=== PATIENT | female | born 1935 | race Caucasian/White ===

== ENCOUNTER 2022-03-14 19:45 | Inpatient (IN) | payer MEDICARE ==
[~2022-03-14] VITALS: Wt 44.0 kg
[2022-03-14] MEDS ORDERED: CALCIUM 500+D1 EACH PO (21:46)
[2022-03-14] MEDS ORDERED: CARBIDOPA-LEVO1 EA19 PO (21:47)
[2022-03-14] MEDS ORDERED: LISI5 PO (21:48)
[2022-03-14] MEDS ORDERED: CARV6.25 PO (21:48)
[2022-03-14] MEDS ORDERED: Zocor40 MG PO (21:49)
[2022-03-14] MEDS ORDERED: FISH OIL-VIT D1 EACH PO (21:50)
[2022-03-14] MEDS ORDERED: THERA-D2000 UNIT PO (21:51)
--- NOTE | 2022-03-14 22:31 | NUR ---
PT ARRIVED TO FLOOR A TRANSFER FROM [facility]. MEDICS REPORTED MEDICATING WITH 50 MCG OF FENT BEFORE ARRIVAL. PT A/OX3, DROWSY. ORTHO CALLED REQUESTING NEW IMAGES. HOSPITALIST NOTIFIED OF PTS ARRIVAL, AWAITING ORDERS. PT RESTING WITH FAMILY AT BEDSIDE, CALL LIGHT IN REACH.
[2022-03-14 23:42] LABS: International Normalized Ratio 1.02; Prothrombin Time Results 10.7 Sec (9.7-11.5)
[2022-03-15 00:34] LABS: BASOPHILS ABSOLUTE AUTO 0.04 K/mm3 (0.00-0.23); BASOPHILS PERCENT AUTO 0 % (0-2); EOSINOPHILS ABSOLUTE AUTO 0.06 K/mm3 (0.00-0.68); EOSINOPHILS PERCENT AUTO 0 % (0-6); Hematocrit 38.8 % (33.0-51.0); IMMATURE GRAN ABSOLUTE AUTO 0.05 K/mm3 (0.00-0.10); IMMATURE GRAN PERCENT AUTO 0 % (0-1); LYMPHOCYTES ABSOLUTE AUTO 0.82 K/mm3 (0.84-5.20); LYMPHOCYTES PERCENT AUTO 5 % (21-46); MONOCYTES ABSOLUTE AUTO 0.95 K/mm3 (0.16-1.47); MONOCYTES PERCENT AUTO 6 % (4-13); Mean Corpuscular HGB 30.2 pg (26.0-34.0); Mean Corpuscular HGB Conc 33.5 g/dL (31.5-36.5); Mean Corpuscular Volume 90 fL (80-100); NEUTROPHILS ABSOLUTE AUTO 13.99 K/mm3 (1.96-9.15); NEUTROPHILS PERCENT AUTO 88 % (41-73); Platelet Count 143 K/mm3 (150-400); RDW Coefficient Variation 12.5 % (11.7-14.2); RDW Standard Deviation 41.4 fL (35.1-46.3); Red Blood Cell Count 4.31 M/mm3 (3.80-5.20); White Blood Cell Count 15.91 K/mm3 (4.00-11.30)
[2022-03-15 00:46] LABS: Albumin, Blood 3.1 g/dL (3.4-5.0); Albumin/Globulin Ratio 0.8 (0.8-1.8); Bun/Creatinine Ratio 28.7 (12.0-20.0); Calcium, Blood 8.6 mg/dL (8.5-10.1); Creatinine, Blood 0.49 mg/dL (0.40-1.00); Globulin, Blood 3.9 g/dL (2.2-4.0); Potassium, Blood 3.9 mmol/L (3.5-5.5)
[2022-03-15] MEDS ORDERED: Aspir 8181 MG PO (02:24)
--- NOTE | 2022-03-15 04:22 | NUR ---
PT IS A NEW ADMIT FROM THE ER WITH A R FEMUR FX. VSS. PT HAS BEEN NPO SINCE ARRIVING TO THE FLOOR. PT SLEPT WELL T/O THE NIGHT. MEDICATED FOR NAUSEA, PT DID NOT WANT TO TAKE ANY PAIN MEDICATION DUE TO FEELING NAUSEATED FROM FENTENYL GIVEN ON THE AMBULANCE. DISTAL PULSES AND SENSATION REMAIN INTACT IN THE RLE. C/O MINIMAL PAIN WITH MOVEMENT. VOIDING W/O DIFFICULTY, CONTINENT/INCONTINENT. AWAITING ORTHO CONSULT THIS AM. THE PT IS CURRENTLY SLEEPING, IN NO DISTRESS. CALL LIGHT IN REACH, BED ALARM ON.
--- NOTE | 2022-03-15 11:45 | NUR ---
TO DAY SURGERY VIA HOSPITAL BED
--- NOTE | 2022-03-15 12:12 | NUR ---
History, Chart, Medications and Allergies reviewed before start of procedure. Lungs clear T/O but diminished to Auscultated. Pt encouraged to take deep breathes. Patient confirms NPO status and agrees with scheduled surgery. Pre-Op teaching done. Pt verbalizes understanding.
--- NOTE | 2022-03-15 14:50 | NUR ---
POST OP ARRIVES TO ROOM, FULLY AWAKE & ORIENTED. DENIES PAIN; REPORTS STIFFNESS. NO NAUSEA. VSS. LUNGS CLEAR BUT DIM; 2L NC. PPP. R HIP w/ SMALL AQUACEL. NO DRAINAGE NOTED. NO BRUISING TO AREA. ATTENDS IN PLACE. WATER & JELLO GIVEN.
--- NOTE | 2022-03-15 18:36 | NUR ---
SHIFT SUMMARY ASSUMED CARE OF PATIENT AT 1500. ALERT AND ORIENTED, RESTING IN BED. POD 0 R HIP FX REPAIR WITH PINNING WITH DR REESE. AQUCEL TO R HIP WITH MOD SPOT OF SS DRAINAGE, INTACT. PATIENT RATES PAIN 6/10, MEDICATING PER EMAR WITH TYLENOL AND TORADOL. MORPHINE IV FOR BREAKTHROUGH. TOLERATING BITES OF REG DIET AND ORAL LIQUIDS. INCONTINENT AT BASELINE. ATTENDS DRY AT THIS TIME. AND SON ATTENTIVE IN ROOM.
[2022-03-16 00:51] LABS: Source, Urine Foley catheter
[2022-03-16 00:55] LABS: Bilirubin, Urine Neg (Neg); Blood, Urine 3+ (Neg); Glucose Qualitative, Urine Neg (Neg); Ketones, Urine 1+ (Neg); Leukocyte Esterase, Urine 3+ (Neg); Nitrite, Urine Neg (Neg); Protein, Urine 2+ (Neg); Specific Gravity, Urine 1.015 (1.003-1.022); Urobilinogen, Urine NORM (Normal)
[2022-03-16 01:03] LABS: Appearance, Urine Cloudy (Clear); Color, Urine Yellow (P-Yellow)
[2022-03-16 01:05] LABS: Bacteria Mod /hpf; Squamous Epithelial Cells Rare /hpf (Few); White Blood Cells, Urine TNTC /hpf (0-5)
--- NOTE | 2022-03-16 01:42 | NUR ---
0110 HRS: PT BP INCREASED TO 170/67 WITH A PULSE OF 66. TOOK BP ONCE MORE AND IT HAD INCREASED TO 179/73 WITH A PULSE OF 68. PT DENIED SOB OR CHEST PAIN. DR. MARROQUIN CALLED AND HYDRALAZINE ORDER OBTAINED.
[2022-03-16 04:28] LABS: BASOPHILS ABSOLUTE AUTO 0.02 K/mm3 (0.00-0.23); BASOPHILS PERCENT AUTO 0 % (0-2); EOSINOPHILS PERCENT AUTO 0 % (0-6); Hematocrit 38.3 % (33.0-51.0); Hemoglobin 12.9 g/dL (11.5-16.0); IMMATURE GRAN ABSOLUTE AUTO 0.03 K/mm3 (0.00-0.10); IMMATURE GRAN PERCENT AUTO 0 % (0-1); LYMPHOCYTES ABSOLUTE AUTO 0.86 K/mm3 (0.84-5.20); LYMPHOCYTES PERCENT AUTO 7 % (21-46); MONOCYTES ABSOLUTE AUTO 0.52 K/mm3 (0.16-1.47); MONOCYTES PERCENT AUTO 4 % (4-13); Mean Corpuscular HGB 30.1 pg (26.0-34.0); Mean Corpuscular HGB Conc 33.7 g/dL (31.5-36.5); Mean Corpuscular Volume 90 fL (80-100); Mean Platelet Volume 10.5 fL (9.1-12.4); NEUTROPHILS ABSOLUTE AUTO 11.11 K/mm3 (1.96-9.15); NEUTROPHILS PERCENT AUTO 89 % (41-73); Platelet Count 147 K/mm3 (150-400); RDW Coefficient Variation 12.2 % (11.7-14.2); Red Blood Cell Count 4.28 M/mm3 (3.80-5.20); White Blood Cell Count 12.54 K/mm3 (4.00-11.30)
[2022-03-16 04:49] LABS: Albumin, Blood 2.9 g/dL (3.4-5.0); Anion Gap 6 mmol/L (6-16); Blood Urea Nitrogen 16 mg/dL (8-24); Bun/Creatinine Ratio 28.4 (12.0-20.0); CO2, Blood 29 mmol/L (21-32); Calcium, Blood 8.9 mg/dL (8.5-10.1); Chloride, Blood 102 mmol/L (98-108); Creatinine, Blood 0.56 mg/dL (0.40-1.00); Glomerular Filtration Rate 89 (60-); Glucose, Blood 170 mg/dL (70-99); Phosphorus, Blood 2.4 mg/dL (2.5-4.9); Potassium, Blood 4.2 mmol/L (3.5-5.5); Sodium, Blood 137 mmol/L (136-145)
--- NOTE | 2022-03-16 05:01 | NUR ---
SHIFT SUMMARY: PT IS A&O AND IS VERY PLEASANT. C/O MINIMAL PAIN T/O THE NIGHT THAT WAS WELL MANAGED WITH ORDERS PER EMAR. PT USED BSC WITH GAIT BELT AND FWW AND TOLERATED FAIRLY. ATTENDS ARE IN PLACE. AQUACEL X1 REMAINS IN PLACE ON HER RIGHT HIP. TOLERATING PO FLUIDS AND EATING SMALL AMOUNTS OF FOOD. PT HAD HYPERTENSIVE EPISODE DURING THE SHIFT, DR. MARROQUIN WAS NOTIFIED AND HYDRALAZINE WAS ORDERED. DENIED SOB OR CHEST PAIN. PT RESPONDED WELL. ANSWERS AND USES CALL LIGHT APPRIPRIATELY. CALL LIGHT REMAINS IN REACH.
--- NOTE | 2022-03-16 14:21 | NUR ---
SHIFT SUMMARY: POD 1 RIGHT HIP PINNING PATIENT IS A&OX4. VS ARE WNL AND IS ON 2L NC FOR COMFORT. PAIN IS MANAGED WITH PO TRAMADOL AND TYLENOL. SHE IS TOE TOUCH WT BEARING ON THE RIGHT HIP. PATIENT IS A SBA WITH FWW AND GAIT BELT. SHE DENIES NUMBNESS AND TINGLING IN ALL EXTREMITIES. RIGHT HIP HAS ONE AQUACEL THAT IS INTACT. PATIENT IS INCONTINENT AT TIMES BUT WILL MAKE STAFF AWARE AND WILL GET ON THE BSC TO GET HER DEPENDS CHANGED. SHE IS TOLERATING PO INTAKE AND IS PASSING GAS. SHE IS RECIEVING MIRALAX TO PROMOTE A BM. CALLS APPROPRIATELY. CALL LIGHT WITHIN REACH. IS AT BEDSIDE. THE PLAN IS FOR HER TO BE TRANSFERRED TO A SNF UP IN [place] WHERE THEY ARE FROM. THEN COME BACK IN TWO WEEKS TO SEE DR. REESE FOR THE FIRST FOLLOW UP THEN WILL FOLLOW UP WITH A DOCTOR CLOSER TO HOME.
--- NOTE | 2022-03-16 14:44 | NUR ---
ASSUMED CARE OF PATIENT PATIENT RESTING IN CHAIR, IV WENT BAD FOR PREVIOUS RN. THIS RN DISCUSSED NEW IV WITH PATIENT AND PATIENT REQUESTED TO ASK DOCTOR IF IV WAS NECESSARY. THIS RN WILL CALL DOCTOR. CALL LIGHT IN REACH, NO OTHER NEEDS AT THIS TIME.
--- NOTE | 2022-03-16 15:06 | NUR ---
JEFF BLOOD PRESSURE HIGH AT 186/61 WITH A RECHECK OF 195/72. THIS RN CALLED DR HANEY. GAVE ORDERS TO GIVE PATIENT HER PAIN MEDICATION AND RECHECK BLOOD PRESSURE, DO NOT GIVE HYDRALAZINE AT THIS TIME. DR HANEY ALSO GAVE ORDERS OVER TELEPHONE FOR NO IV ACCESS NEEDED AND STATED SHE WILL SWITCH ABX TO ORAL. ALSO GAVE ORDERS TO CHANGE HYDRALAZINE TO ORAL, 10MG PO Q6 PRN.
--- NOTE | 2022-03-16 17:48 | NUR ---
SHIFT SUMMARY PATIENT IS POD 1 R HIP PINNING. DRESSING CHANGED D/T DRAINAGE PRESENT. NEW AQUACEL IN PLACE, C/D/I. PAINMANAGED PER EMAR. PATIENTS BLOOD PRESSURE HAS BEEN ELEVATED THIS AFTERNOON, SEE PREVIOUS NOTE. PRN HYDRALAZINE GIVEN. CONTINUING TO RECHECK BP'S. PATIENT EATING, DRINKING, & VOIDING WELL. CALLS APPROPRITELY, WILL REPORT TO ONCOMING RN.
--- NOTE | 2022-03-17 04:52 | NUR ---
SHIFT SUMMARY: A&OX3. PT OCCASSIONALLY FORGETFUL, EASILY REMINDED. C/O MINIMAL PAIN T/O THE SHIFT THAT WAS WELL MANAGED PER EMAR ORDERS. USING BSC WITH FWW AND GAIT BELT. TOLERATING WELL. ATTENDS IN PLACE. TOLERATING PO FLUIDS AND FOOD. REPORTS DECREASED APPETITE AT BASELINE. GIVEN APPLESAUCE DURING THE NIGHT TO SNACK ON. REMAINS ON 1L 02 VIA NC.CALL LIGHT REMAINS IN REACH AND PT IS RESTING AT THIS TIME.
[2022-03-17 07:14] LABS: BASOPHILS ABSOLUTE AUTO 0.01 K/mm3 (0.00-0.23); BASOPHILS PERCENT AUTO 0 % (0-2); EOSINOPHILS ABSOLUTE AUTO 0.06 K/mm3 (0.00-0.68); EOSINOPHILS PERCENT AUTO 1 % (0-6); Hematocrit 33.8 % (33.0-51.0); Hemoglobin 11.2 g/dL (11.5-16.0); IMMATURE GRAN ABSOLUTE AUTO 0.03 K/mm3 (0.00-0.10); IMMATURE GRAN PERCENT AUTO 0 % (0-1); LYMPHOCYTES ABSOLUTE AUTO 1.22 K/mm3 (0.84-5.20); LYMPHOCYTES PERCENT AUTO 11 % (21-46); MONOCYTES ABSOLUTE AUTO 1.09 K/mm3 (0.16-1.47); MONOCYTES PERCENT AUTO 10 % (4-13); Mean Corpuscular HGB Conc 33.1 g/dL (31.5-36.5); Mean Corpuscular Volume 91 fL (80-100); Mean Platelet Volume 10.7 fL (9.1-12.4); NEUTROPHILS ABSOLUTE AUTO 8.61 K/mm3 (1.96-9.15); NEUTROPHILS PERCENT AUTO 78 % (41-73); Platelet Count 145 K/mm3 (150-400); RDW Coefficient Variation 12.3 % (11.7-14.2); RDW Standard Deviation 41.1 fL (35.1-46.3); Red Blood Cell Count 3.73 M/mm3 (3.80-5.20); White Blood Cell Count 11.02 K/mm3 (4.00-11.30)
[2022-03-17 15:25] LABS: SARS-Cov-2 (COVID-19) PCR, MMC NEGATIVE (NEGATIVE)
--- NOTE | 2022-03-17 18:16 | NUR ---
PTS FAMILY HERE THROUGHOUT DAY AND ATTENTIVE TO PATIENT. PT SITTING IN CHAIR WITH LEGS ELEVATED MUCH OF SHIFT. MEDICATED X1 FOR HIP AND BACK PAIN WITH GOOD RELIEF. PRN HYDRALAZINE GIVEN FOR HTN. UP TO COMMODE WITH 2 PERSON ASSIST COCCYX WITH SL REDDENED AREA WHICH BLANCHES, MEPILEX APPLIED. PT AND FAMILY IN [place] WITH PLAN TO DC TO SNF IN [place] IN AM
--- NOTE | 2022-03-18 06:19 | NUR ---
SHIFT SUMMARY: PT SLEPT COMFORTABLY T/O THE NIGHT. PAIN WAS WELL MANAGED WITH REPOSITIONING AND UNINTERRUPTED REST. 1-2X PERSON ASSIST TO BSC. TOE TOUCH ON R LEG WITH FWW AND GAIT BELT. PT EATING, DRINKING, AND VOIDING URINE. AQUACEL X1 REMAINS IN PLACE ON R HIP. PLANS TO DISCHARGE TO SNF TODAY.
--- NOTE | 2022-03-18 11:06 | NUR ---
REPORT PHONED TO SKYLA AT [facility]
--- NOTE | 2022-03-18 13:26 | NUR ---
1321 DISCHARGED WITH [facility] TRANSPORT TO TRANSFER TO [facility] AREA SNF IN [place]. PTS AND SON WITH PATIENT AT TIME OF DISCHARGE. PT REPORTS PAIN IS WELL CONTROLLED
== END 2022-03-18 13:21 | DRG 482 ==
LOC: SURS 19:45
PROVIDERS: Internal Medicine; Orthopaedic Surgery; ADMIT Internal Medicine
PROC: 0QS634Z Reposition Right Upper Femur with Internal Fixation Device, Percutaneous Approach (ICD-10-PCS; principal; 2022-03-15 12:30)
DX: S72.001A Fracture of unspecified part of neck of right femur, initial encounter for closed fracture (principal); W18.30XA Fall on same level, unspecified, initial encounter; I11.0 Hypertensive heart disease with heart failure; E78.5 Hyperlipidemia, unspecified; G20 Parkinson's disease; D72.828 Other elevated white blood cell count; E83.39 Other disorders of phosphorus metabolism; F32.A Depression, unspecified; Z88.2 Allergy status to sulfonamides; Z85.828 Personal history of other malignant neoplasm of skin; Z79.899 Other long term (current) drug therapy; Z90.710 Acquired absence of both cervix and uterus; Z90.49 Acquired absence of other specified parts of digestive tract; Z98.890 Other specified postprocedural states; R82.71 Bacteriuria; Z79.82 Long term (current) use of aspirin
CPT/HCPCS: 36415; 73502; 80053; 80069; 81001; 83880; 85025; 85610; 87086; 93005; 93010; 97110; 97162; 97166; 97530; 97535; A9270; C1713; C1769; J0360; J0690; J0696; J1100; J1650; J2370; J2405; J2704; J3010; J7030; J7120; U0004